=== PATIENT | male | born 2000 | race Caucasian/White ===

== ENCOUNTER 2018-07-21 13:52 | Emergency (ER) | payer OTHER ==
[2018-07-21] MEDS ORDERED: LIDOCAINE 1% INJ-PF (10 MG/ML) 30 ML SDV INJ ONE (14:45)
--- NOTE | 2018-07-21 14:47 | ER Document Report ---
HPI - HPI Time Seen by Provider: 07/21/18 14:35 Pain Level: 2 Context: Patient is a 18-year-old male who presents to the emergency department with a chief complaint of a cut to his right wrist. He was adjusting a pitcher on the wall and the glass fell out and cut his wrist. He states this happened less than an hour before his visit here to the emergency department. He is up-to- date on his immunizations, including his tetanus shot. He has no other medical history. Past Medical History - Social History Smoking Status: Never Smoker Frequency of alcohol use: None Drug Abuse: None Lives with: Family, Spouse/Significant other, Friend Family History: Reviewed & Not Pertinent Vertical Provider Document - INFECTION CONTROL TRAVEL OUTSIDE OF THE [place] IN LAST 30 DAYS: No - HEENT HEENT: Atraumatic - NECK Neck: Normal Inspection - RESPIRATORY Respiratory: No Respiratory Distress - NEURO Level of Consciousness: Awake, Alert, Appropriate Notes: Numbness to right thumb. - DERM Integumentary: Warm, Dry, Laceration - Right wrist about 3 cm laterally and 1 cm vertically Course - Re-evaluation Re-evalutation: 07/21/18 15:51 I have attempted to call Dr. Trammell, in regards to the patient's case because I am concerned for possible tendon injury to the extensor pollicis brevis and the adductor polliciss longus. I will attempt to call back in about 30 minutes. 07/21/18 16:36 I was able to speak with Dr. Trammell. He states he will see him in the office first thing Monday morning. He is also suggesting that compression dressing be placed to the area. - Vital Signs Vital signs: Temp Pulse Resp BP Pulse Ox 98.6 F 66 16 138/79 H 100 07/21/18 13:56 07/21/18 13:56 07/21/18 13:56 07/21/18 13:56 07/21/18 13:56 Procedures - Immobilization Left Wrist Immobilizer type: Thumb spica Performed by: PCT Post-Proc Neuro Vasc Exam: Normal Alignment checked and good: Yes - Laceration/Wound Repair Right Wrist Wound length (cm): 5 Wound's Depth, Shape: Superficial Laceration pre-procedure: Sterile PPE donned, Sterile drapes applied, Shur- Clens applied Anesthetic type: 1% Lidocaine Wound explored: Clean Wound Repaired With: Sutures Suture Size/Type: 4:0, Nylon Number of Sutures: 5 Layer Closure?: No Post-procedure wound care: Sterile dressing applied, Splint applied Discharge - Discharge Clinical Impression: Laceration of wrist Qualifiers: Encounter type: initial encounter Laterality: right Qualified Code(s): S61.511A - Laceration without foreign body of right wrist, initial encounter Condition: Stable Disposition: HOME, SELF-CARE Additional Instructions: You have been seen in the emergency department for a cut on your right wrist. Please follow-up with orthopedic surgery on Monday. You also have stitches placed to your right wrist. Have them taken out in 5-7 days. If you develop a fever greater than 100.4 F, have pus drained from your cut, or have any symptoms that are worrisome to you, please see your primary care doctor. Referrals: LORRAINE TRAMMELL MD [ACTIVE STAFF] - Follow up as needed
[2018-07-21 17:06] VITALS: BP 136/79
== END 2018-07-21 17:06 | disposition home or self-care (01) ==
LOC: ER 13:52
DX: S61.511A Laceration without foreign body of right wrist, initial encounter (principal); W25.XXXA Contact with sharp glass, initial encounter
CPT/HCPCS: 99283; 12002; J3490

== ENCOUNTER 2018-08-03 13:07 | Day surgery (SDC) | payer OTHER ==
[~2018-08-03 13:07] MED LIST: CEFAZOLIN SODIUM 2 GM in DEXTROSE 5%-WATER 100 ML IV PRN; DEXAMETHASONE SOD PHOSPHATE INJ 4 MG/1 ML VIAL ONE; KETOROLAC TROMETHAMINE 60 MG/2 ML SDV ONE; ONDANSETRON HCL INJ/PF 4 MG/2 ML SDV ONE; SUCCINYLCHOLINE CHLORIDE INJ 200 MG/10 ML VIAL ONE
[2018-08-03] MEDS ORDERED: FENTANYL CITRATE INJ/PF 100 MCG/2 ML AMPUL ONE ×2 (15:07→17:25)
[2018-08-03] MEDS ORDERED: PROPOFOL INJ 200 MG/20 ML VIAL IV ONE (15:08)
[2018-08-03] MEDS ORDERED: ACETAMINOPHEN 1,000 MG/100 ML RTUPB IV ONE (15:08)
[2018-08-03] MEDS ORDERED: HYDROMORPHONE HCL INJ/PF 2 MG/ML AMPULE ONE (15:08)
[2018-08-03] MEDS ORDERED: MIDAZOLAM 2 MG/2 ML INJ ONE (15:08)
[2018-08-03] MEDS ORDERED: PROMETHAZINE HCL INJ 25 MG/1 ML VIAL IV PRN (15:32)
[2018-08-03] MEDS ORDERED: DIPHENHYDRAMINE HCL 50 MG/ML VIAL IV PRN (15:32)
[2018-08-03] MEDS ORDERED: FENTANYL CITRATE INJ/PF 100 MCG/2 ML AMPUL IV PRN ×3 (15:32)
[2018-08-03] MEDS ORDERED: MORPHINE SULFATE 10 MG/ML INJ IV PRN ×2 (15:32→16:37)
[2018-08-03] MEDS ORDERED: MEPERIDINE HCL/PF INJ 25 MG/1 ML DISP.SYRIN IV PRN (15:32)
[2018-08-03] MEDS ORDERED: BUPIVACAINE HCL 0.5 % INJ/PF 30 ML SDV ONE (16:04)
[2018-08-03] MEDS ORDERED: OXYCODONE-ACETAMINOPHEN 5-325 MG TABLET PO PRN (16:37)
[2018-08-03] MEDS ORDERED: ONDANSETRON HCL INJ/PF 4 MG/2 ML SDV IV PRN (16:37)
--- NOTE | 2018-08-03 16:43 | Discharge Summary ---
Discharge Summary (SDC) - Discharge Final Diagnosis: Right thumb EPB tendon laceration Right thumb superficial radial nerve laceration Date of Surgery: 08/03/18 Discharge Date: 08/03/18 Condition: Good Treatment or Instructions: Schedule Follow Up w/ Dr. Jens Aguilera @ [facility] for Surgery to be seen in 10-14 days or as scheduled [place]: [place]: [place]: Ice and elevate Keep splint clean/dry/intact. If your fingers become numb please unwrap the [place] wrap but leave the splint in place, if the sensation does not return within 30 minutes please return to the emergency department. May begin finger range of motion attempting to make full fist. Please use ibuprofen (Motrin or Advil) 600-800 mg every 8 hours as needed for pain or fever DO NOT TAKE w/ TORADOL may use once TORADOL complete. You may also use acetaminophen (Tylenol) 1000 mg every 4-6 hours as needed for pain or fever. Please be aware that many medications contain acetaminophen, do not exceed a total of 1000 mg of acetaminophen every 6 hours. If ibuprofen and acetaminophen are not sufficient for your pain you may take the Percocet/[place]. Please be aware that the Percocet/[place] does contain Tylenol. Stool softener of choice when on pain medication. Prescriptions: Oxycodone HCl/Acetaminophen [Percocet 5-325 mg Tablet] 1 tab PO Q6 PRN #25 tab PRN Reason: Discharge Diet: As Tolerated Respiratory Treatments at Home: Deep Breathing/Coughing Discharge Activity: No Lifting Over 10 Pounds, No Lifting/Push/Pulling Report the Following to Your Physician Immediately: Fever over 101 Degrees, Unusual Bleeding, Redness, Swelling, Warmth, Increased Soreness
--- NOTE | 2018-08-03 16:43 | Operative Report ---
Operative Report DATE OF SURGERY: 08/03/18 PREOPERATIVE DIAGNOSIS: Right thumb EPB laceration, superficial radial nerve la ceration POSTOPERATIVE DIAGNOSIS: Same OPERATION: Repair of right thumb EPB. Repair radial branch of the superficial radial nerve SURGEON: YOUNG KRISHNA ANESTHESIA: GA COMPLICATIONS: None ESTIMATED BLOOD LOSS: Minimal PROCEDURE: Indication for above procedure: 18-year-old male who sustained a laceration to his right thumb. He was seen at the emergency room where the area was irrigated and loosely closed. He subsequ ently followed up at my office 2 weeks after the injury with findings of a pill weakness and possible superficial radial nerve involvement. At that point we discussed treatment options including operative versus nonoperative intervention given patient's neuropathic pain and sensory deficit decision was made to proceed with operative treatment. Procedure In Detail: Patient was seen and evaluated in the preoperative holding area. The RIGHT upper extremity was initialized and marked. Patient received 2g of Ancef IV for bacterial prophylaxis. Patient was taken back to the operative room where transferred to the operative table and placed under general anesthesia. Once they were adequately anesthetized a nonsterile tourniquet was placed on the upper extremity. A surgical team debriefing was performed ensuring all instrumentation was available, the surgical procedure was discussed with possible concerns reviewed. The upper extremity was prepped with chlorhexidine and alcohol and draped in a sterile fashion. A timeout was done identifying correct patient, procedure and extremity everyone in attendance agree with this and verbalized no concerns. The extremity was exsanguinated the tourniquet was inflated to 250 mmHg. . Patient's laceration was extended proximally and distally. Blunt dissection was performed. Significant scar was evident at the laceration site. The radial branch of the superficial radial nerve overlying the first dorsal compartment was identified. There was not significant retraction of the nerve. Adjacent peripheral vein was identified and coagulated with bipolar cautery. There was complete disruption of the extensor pollicis brevis as well but no involvement of the APL. The first dorsal compartment was then released along its dorsal aspect. The proximal end of the EPB was identified. The EPB was reapproximated utilizing a M-Crowe 6 stranded repair with 4-0 fiber loop. No additional tendon disruption was appreciated. Under microscope magnification the radial branch of the superficial radial nerve was reapproximated with interrupted 9-0 nylon suture x2 with a epineural repair. The repair was performed without tension patient had adduction to the index finger in opposition to the middle finger without traction placed on the nerve. The nerve repair was then reinforced with Tisseel fibrin glue. A 3 mm x 15 mm Axogen nerve protector was then cut on one end and placed over the repair site to serve as a nerve protector and secured with 8-0 nylon suture. Wound was copiously irrigated with normal saline. Any peripheral veins were coagulated bipolar cautery. Wound was reapproximated with 4-0 nylon suture. 30 cc of 0.5% bupivacaine without epinephrine was injected for postoperative pain control. Sponge and instrument counts were correct there was a missing 9-0 nylon suture needle that was lost after closure began. Patient was then awoken from anesthesia. Transferred from the operating room table to the operating room stretcher. There was no intraoperative complications patient tolerated procedure well stable to PACU. Postop plan: Patient will be set up for occupational therapy at the [facility] be fitted for a thumb spica splint to begin IP joint flexion/extension but no MP/CMC joint flexion/extension or opposition until 6 weeks postoperatively.
[2018-08-03] MEDS ORDERED: ONDANSETRON HCL INJ/PF 4 MG/2 ML SDV ONE (17:24)
[2018-08-03 19:21] VITALS: BP 135/82
== END 2018-08-03 19:30 | disposition home or self-care (01) ==
LOC: OROUT 13:07
PROVIDERS: ATTEND Orthopaedic Surgery
DX: S66.221A Laceration of extensor muscle, fascia and tendon of right thumb at wrist and hand level, initial encounter (principal); S64.21XA Injury of radial nerve at wrist and hand level of right arm, initial encounter; S61.011A Laceration without foreign body of right thumb without damage to nail, initial encounter; W25.XXXA Contact with sharp glass, initial encounter; G56.31 Lesion of radial nerve, right upper limb
CPT/HCPCS: 25270; 64912; C9250; C1763; J2250; J3490; J0690; J1100; J1885; J3010; J1170; J0330; J2405; J2704; J0131; 1810

== ENCOUNTER 2020-05-08 19:03 | Emergency (ER) | payer OTHER ==
[2020-05-08 19:28] VITALS: BP 149/83
--- NOTE | 2020-05-08 19:45 | ER Document Report ---
ED Medical Screen (RME) - General Chief Complaint: Chest Pain Stated Complaint: CHEST PAIN Time Seen by Provider: 05/08/20 19:39 Mode of Arrival: Ambulatory Information source: Patient Notes: 20-year-old male presented to ED for complaint of chest pain x3 days. He states it is getting progressively worse. He states he has not had any heavy lifting any excessive exercises that and does not unusual for [employer]. He does not have any tenderness to palpation. He states he cannot lay on his right side due to the pain. He states he gets short of breath if he takes really deep breaths. He is alert oriented respirations regular nonlabored speaking in full sentences. He does not smoke. States he does drink once or twice a week does not use any drugs. He is active duty [employer]. Lungs are clear to auscultation. I have greeted and performed a rapid initial assessment of this patient. A comprehensive ED assessment and evaluation of the patient, analysis of test results and completion of medical decision making process will be conducted by an additional ED providers. TRAVEL OUTSIDE OF THE [place] IN LAST 30 DAYS: No - Related Data Allergies/Adverse Reactions: No Known Allergies Allergy (Verified 07/21/18 13:54) Past Medical History - Past Medical History Cardiac Medical History: Denies: Hx Coronary Artery Disease, Hx Heart Attack, Hx Hypertension Pulmonary Medical History: Denies: Hx Asthma, Hx Bronchitis, Hx COPD, Hx Pneumonia Neurological Medical History: Denies: Hx Cerebrovascular Accident, Hx Seizures Renal/ Medical History: Denies: Hx Peritoneal Dialysis Musculoskeltal Medical History: Denies Hx Arthritis - Immunizations Hx Diphtheria, Pertussis, Tetanus Vaccination: Yes Physical Exam - Vital signs Vitals: Temp Pulse Resp BP Pulse Ox 98.4 F 79 16 149/83 H 99 05/08/20 19:25 05/08/20 19:25 05/08/20 19:25 05/08/20 19:25 05/08/20 19:25 Course - Vital Signs Vital signs: Temp Pulse Resp BP Pulse Ox 98.4 F 79 16 149/83 H 99 05/08/20 19:25 05/08/20 19:25 05/08/20 19:25 05/08/20 19:25 05/08/20 19:25
[2020-05-08 20:53] LABS: ABSOLUTE EOSINOPHILS # (AUTO) 0.1 10^3/uL (0.0-0.6); ABSOLUTE LYMPHOCYTES (AUTO) 2.1 10^3/uL (0.5-4.7); ABSOLUTE NEUT (AUTO) 5.9 10^3/uL (1.7-8.2); BASOPHILS % (AUTO) 0.5 % (0-2); EOSINOPHILS % (AUTO) 1.3 % (0-6); HEMATOCRIT 44.4 % (37.9-51.0); HEMOGLOBIN 15.8 g/dL (13.5-17.0); LYMPHOCYTES % (AUTO) 22.9 % (13-45); MEAN CORPUSCULAR HEMOGLOBIN 31.2 pg (27.0-33.4); MEAN CORPUSCULAR HGB CONC 35.6 g/dL (32.0-36.0); MEAN CORPUSCULAR VOLUME 88 fl (80-97); MONOCYTES % (AUTO) 10.8 % (3-13); PLATELET COUNT 313 10^3/uL (150-450); RED BLOOD COUNT 5.07 10^6/uL (4.35-5.55); RED CELL DISTRIBUTION WIDTH 12.3 % (11.5-14.0); SEGMENTED NEUTROPHILS % (AUTO) 64.5 % (42-78); TOTAL CELLS COUNTED % (AUTO) 100 %; WHITE BLOOD COUNT 9.1 10^3/uL (4.0-10.5)
[2020-05-08 21:08] LABS: ALBUMIN 4.6 g/dL (3.5-5.0); ALKALINE PHOSPHATASE 87 U/L (38-126); ANION GAP 8 (5-19); ASPARTATE AMINO TRANSFERASE 42 U/L (17-59); BILIRUBIN,DIRECT 0.3 mg/dL (0.0-0.4); BILIRUBIN,TOTAL 0.6 mg/dL (0.2-1.3); BLOOD UREA NITROGEN 15 mg/dL (7-20); CALCIUM 9.9 mg/dL (8.4-10.2); CARBON DIOXIDE 32 mmol/L (22-30); CHLORIDE 100 mmol/L (98-107); CREATINE KINASE 112 U/L (55-170); GLUCOSE 108 mg/dL (75-110); NEONATAL BILIRUBIN RESULT 0.4 mg/dL (0.1-1.1); POTASSIUM 4.2 mmol/L (3.6-5.0); TOTAL PROTEIN 7.2 g/dL (6.3-8.2)
--- NOTE | 2020-05-08 21:16 | RADIOLOGY REPORT (SQ) ---
CHEST X-RAY 2 view on 05/08/2020 at 8:00 PM CLINICAL INDICATION: Worsening shortness of breath COMPARISON: None FINDINGS: The lungs are clear. Cardiac, hilar and mediastinal contours are within normal limits. Pulmonary vascularity is within normal limits. No bony abnormality is noted. IMPRESSION: No active disease.
--- NOTE | 2020-05-08 22:51 | EKG REPORT ---
SEVERITY:- NORMAL ECG - SINUS RHYTHM : Confirmed by: Moiz Bailey MD 08-May-2020 22:49:41
== END 2020-05-09 01:24 | disposition left against medical advice (07) ==
LOC: ER 19:03
DX: R07.9 Chest pain, unspecified (principal); R06.02 Shortness of breath; Z53.20 Procedure and treatment not carried out because of patient's decision for unspecified reasons
CPT/HCPCS: 36415; 71046; 80053; 82550; 83690; 83735; 84484; 85025; 93005; 93010; 99281